=== PATIENT | female | born 1955 | race Caucasian/White ===

== ENCOUNTER → 2018-11-29 07:14 | Outpatient (CLI) | payer MEDICARE, OTHER ==
[~2018-11-29 07:14] MED LIST: COZAAR25 MG; CRESTOR10 MG; GLIMEPIRIDE2 MG PO; JANUMET XR 1001 EACH PO; PIOGLITAZONE HC30 MG
== END | disposition home or self-care (01) ==
LOC: D.NM 07:14
DX: R10.11 Right upper quadrant pain (principal)